=== PATIENT | male | born 1955 | race Caucasian/White ===

== ENCOUNTER 2016-12-21 19:11 | Emergency (ER) | payer OTHER ==
[~2016-12-21] VITALS: Ht 180.3 cm; Wt 81.0 kg
[2016-12-21 19:29] VITALS: BP 139/78; PULSE 82; RESP 16; O2SAT 98
[2016-12-21 20:06] LABS: BASOPHILS % (AUTO) 0.3 % (0-3); EOSINOPHILS % (AUTO) 1.3 % (0-5); MONOCYTES % (AUTO) 0.8 % (4-12); Mean Corpuscular Volume 91.1 fL (81-100); NEUTROPHILS % (AUTO) 84.7 % (40-74); Platelet Count 131 bil/L (150-400)
[2016-12-21 21:15] VITALS: BP 130/65; PULSE 75; RESP 16; O2SAT 97
--- NOTE | 2016-12-21 21:47 | ED.REPORT ---
HPI-General Illness Date of Service Dec 21, 2016 ED Provider: Wallace Gray MD History of Present Illness: OCC A 61 year old male with no pertinent medical history presents to the ED complaining of uncontrollable shaking. 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 He laid down at 19:00 and suddenly began shaking. He describes the shaking as a type of shiver, unlike a seizure, accompanied by abdominal pain and headache. He denies diaphoresis, chills, dysuria, rash or abnormal cough. The pt was hit in the head during a soccer game four days ago and has been experiencing a headache since that point. The pt is also concerned because he has been working recently in an environment with mold. He denies recent surgery. Nursing Notes Stated Complaint: UNCONTROLLABLE SHAKING Chief Complaint: General Complaint Nursing Notes Reviewed: Yes ([facility], [employer] not reconciled) Allergies: Coded Allergies: No Known Allergies (Unverified , 12/21/16) General Time Seen by MD: 21:45 Chief Complaint Other (Shaking) Hx Obtained From: Patient, Spouse Arrived By: Walk-in Sudden in Onset?: Yes Onset Occurred: 1 - 4 hours ago Symptom Duration: Since onset Recent Healthcare: No recent doctor visit, No recent hospitalization Similar Sx Previous: No Past Medical History Past Medical History none reported Past Surgical History none reported Smoking History Former Smoker Social History Alcohol Use: "Social" Other Social History: Good social support, Ambulatory Status Independent Review of Systems Full Review of Systems Constitutional: Denies: Chills Respiratory: Denies: Non-productive cough, Shortness of breath GI: Reports: Abdominal pain, Denies: Vomiting Male: Denies Dysuria Musculoskeletal: Denies: Back pain, Neck pain Skin: Denies Diaphoresis, Denies Rash Neurologic: Reports: Headache, Shaking (shivering) Complete sys rev & neg: except as marked. Physical Exam Vital Signs Vital Signs Date Time Temp Pulse Resp B/P Pulse Ox O2 Delivery O2 Flow Rate FiO2 12/22/16 01:29 36.9 72 16 132/68 98 Room Air 12/21/16 21:15 75 16 130/65 97 Room Air 12/21/16 19:29 37.5 82 16 139/78 98 Room Air Initial VS: Reviewed, Vital signs normal General/Constitutional: Awake, Alert Head / Eyes: Atraumatic, Normocephalic, PERRL, EOMI ENT: Atraumatic, Airway patent, Mucous membranes moist Neck: Atraumatic, Supple, Full range of motion Respiratory / Chest: Atraumatic, Breath sounds NL, Breath sounds = bilat, No respiratory distress Cardiovascular: Heart rate NL, Regular rhythm, Heart sounds NL Abdomen: Atraumatic, Soft, Non-tender Back: Atraumatic, Full range of motion Upper Extremities Upper Extremity / MS: Atraumatic, Full range of motion Lower Extremity / Pelvis / MS: Atraumatic, Full range of motion Skin: Atraumatic, Color NL, No rash, Warm, Dry Neurologic: Oriented X3, Speech NL, No motor deficits, No sensory deficits Psychiatric: Affect NL, Mood NL Interpretation & Diagnostics Lab Results Interpretation Result Diagram: 12/21/16 1950 12/21/16 1950 Test 12/21/16 19:50 12/21/16 22:50 White Blood Count 7.8th/mm3 (3.8-10.1) Red Blood Count 4.81mil/mm3 (4.40-5.80) Hemoglobin 14.9g/dL (13.8-17.2) Hematocrit 43.8% (41.0-50.0) Mean Corpuscular Volume 91.1fL (81-100) Mean Corpuscular Hemoglobin 31.0pg (27.0-35.0) Mean Corpuscular Hemoglobin Concent 34.0% (32.0-37.0) Red Cell Distribution Width 12.7% (12.3-15.4) Platelet Count 131bil/L (150-400) Neutrophils (%) (Auto) 84.7% (40-74) Lymphocytes (%) (Auto) 12.8% (14-46) Monocytes (%) (Auto) 0.8% (4-12) Eosinophils (%) (Auto) 1.3% (0-5) Basophils (%) (Auto) 0.3% (0-3) Sodium Level 137mEq/L (134-144) Potassium Level 4.0mEq/L (3.5-5.2) Chloride Level 102mEq/L (97-108) Carbon Dioxide Level 24mmol/L (18-29) Blood Urea Nitrogen 22mg/dL (8-27) Creatinine 0.95mg/dL (0.76-1.27) Estimat Glomerular Filtration Rate 85mL/min (>59) Glucose Level 95mg/dL (60-99) Calcium Level 9.0mg/dL (8.5-10.1) Hold [place] Tube Received (Received) Urine Color Yellow (YELLOW) Urine Appearance Clear (CLEAR,HAZY) Urine pH 5.5 (5.0-8.0) Urine Specific [place] 1.026 (1.003-1.035) Urine Protein Negativemg/dL (NEG,TRACE) Urine Glucose (UA) Negativemg/dL (NEGATIVE) Urine Ketones 15mg/dL (NEGATIVE) Urine Occult Blood Negative (NEGATIVE) Urine Nitrite Negative (NEGATIVE) Urine Bilirubin Negative (NEGATIVE) Urine Urobilinogen Normalmg/dL (NORMAL) Urine Leukocyte Esterase Negative (NEGATIVE) Urine RBC 0-2/hpf (0-2) Urine WBC 0-5/hpf (0-5) Urine Epithelial Cells Occasional/hpf (NONE-MOD) Urine Crystals Uric acid crystals (NONE Urine Bacteria Few/hpf (NONE-FEW) Urine Hyaline Casts None/lpf (NONE) Urine Granular Casts None seen (NONE SEEN) Urine Waxy Casts None seen (NONE SEEN) Urine Red Blood Cell Casts None seen (NONE SEEN) Urine White Blood Cell Casts None seen (NONE SEEN) Urine Mucus Present (None Seen) Urine Trichomonas None seen (NONE SEEN) Urine Yeast None (NONE SEEN) Urinalysis Comment Renal epi seen Urine Culture Reflexed Not indicated Lab Results Interpretation: CBC normal CMP normal blood cultures 2 pending ECG Interpretation ECG Interpretation: normal sinus rhythm with a rate of 72 RBBB no previous EKG available for comparison Time: 21:15 Interpreted by: ED physician CT Head Interpretation CONCLUSION: No acute intracranial hemorrhage or calvarial fracture. Interpretation / Wet Read by: Interpret - Radiologist Re-Eval/Medical Decision Med Decision/Clinical Course This is a 61-year-old male who presents complaining of a sudden onset of "terrible shaking" and feeling cold, and of both extremities, and some diffuse body aches. He also notes a mild headache, reports a fairly minimal-and at that started after hitting his head on Saturday during a soccer game. He just felt very poorly after the shaking spell, so came in. He is not certain if he may have spiked a fever. He denies cough, shortness of breath, abdominal pain, vomiting, diarrhea, dysuria or rash. No travel, or infectious symptoms. He still feels just achy all over. The patient's afebrile here, and generally well-appearing. He is alert and appropriate with no focal deficits. His abdomen soft nontender, lungs are clear. No focal skin infection is identified on physical exam or in history. Overall presentation is concerning for an episode of rigors with infection in the major concern. Additionally there is this history of recent head trauma and mild headache and its relation to today's presentation is a bit unclear, given his age and trauma, CT brain was obtained and was negative. At impression clinical signs suggest meningitis, the patient is not have any meningismus, no rashes or exanthems, I am not finding indication LP is indicated. Labwork was obtained and is normal, blood cultures 2 are pending. Discussed options, and given the concern for Rigors and the risk for bacteremia in this setting, an empiric dose of ceftriaxone was administered. I think the patient is safely discharged to home, patient agrees and will follow up with cultures. Routine precautions reviewed. This point a dangerous etiology for the rigors was not identified. He appears well, and is doing well in the department. Source of Hx: Old records Time of Eval: 00:28 Patient Status: Condition improved Re-Evaluation/Progress Note: Pt rechecked, who is resting comfortably. The diagnosis and plan for discharge are discussed. The pt understands and agrees with the plan. All questions are addressed at this time. Differential Diagnosis: Negative: Abdominal pain, Acute coronary syndrome, Allergies, Bronchitis, acute, Contusion, Malingering, Neutropenia, Pneumonia, Seizure disorder Counseled Regarding: Diagnosis, Lab results, Need for follow-up, When/why to return to ED Discharge & Departure Primary Impression: Rigors Disposition: Home Discharge Condition All VS Reviewed: Yes Condition: Stable Additional Instructions: 1. Your brain CT scan, initial blood work, and urine tests were normal. 2. We charlie "blood cultures" today which take several days for final results. This is because the most concerning cause of the shaking spell ("rigors") that you describe are from a developing infection. 3. We have not identified either a specific or dangerous infection thus far. 5. He received an injection of the antibiotic ceftriaxone tonight while we wait for the blood culture results. We will call you if the blood cultures are abnormal, and he may call us at any time at [phone] for results. 6. Rest. Continue to take ibuprofen as needed for soreness up to every 6 hours. Drink extra fluids. 7. If you develop new or worsening symptoms return to the emergency department. Referrals: Andrew Zavala MD (PCP) Scribe Attestation Portions of this note were transcribed by Ailyn Joseph. I, Dr. Gray personally performed the history, physical exam and medical decision-making; I reviewed and confirmed the accuracy of the information in the transcribed note. Signed by: Marlo Aguiar, 12/22/2016 and 0034. copies to: Andrew Zavala MD, Matthew F MD Dec 21, 2016 21:46 AILYN JOSEPH Dec 21, 2016 22:04
[2016-12-21 23:13] LABS: APPEARANCE,URINE CLEAR (CLEAR,HAZY); COLOR,URINE YELLOW (YELLOW); OCCULT BLOOD,URINE NEGATIVE (NEGATIVE); PH,URINE 5.5 (5.0-8.0); UROBILINOGEN,URINE NORMAL (NORMAL)
[2016-12-22] MEDS ORDERED: cefTRIAXone Inj 1,000 MG, Lidocaine PF 1% Inj 2.1 ML in Syringe 0 EACH IM ONE (00:25)
[2016-12-22] MEDS ORDERED: cefTRIAXone Inj 2,000 MG, Lidocaine PF 1% Inj 4.2 ML in Syringe 0 EACH IM ONE (00:30)
[2016-12-22 01:29] VITALS: BP 132/68; PULSE 72; RESP 16; O2SAT 98
--- NOTE | 2016-12-22 08:33 | DRSVH ---
PROCEDURE: CT BRAIN WITHOUT CONTRAST ([id number]) INDICATIONS: head trauma TECHNIQUE: Noncontrast 4.5 mm thick angled axial sections acquired from the foramen magnum to the vertex, with c oronal reformats. COMPARISON: None. FINDINGS: Image quality: Excellent. CSF spaces: Basal cisterns are patent. No extra-axial fluid collections. Ventricles are normal in size and shape. Brain: No midline shift. No intracranial masses or hemorrhage. Velasquez-white matter interface is norm al. Skull and face: Calvarium and visualized facial bones are intact, without suspicious lesions. Sinuses: Visualized sinuses and mastoids are clear. IMPRESSION: No acute intracranial abnormality. No skull fracture. No significant discrepancy with the [facility] department supervisor radiology preliminary report. Dictated by: Ria Rouse M.D. on 12/22/2016 at 8:31 Approved by: Ria Rouse M.D. on 12/22/2016 at 8:31
== END 2016-12-22 01:30 | disposition home or self-care (01) ==
LOC: SED 19:11
DX: R68.89 Other general symptoms and signs (principal); Z87.891 Personal history of nicotine dependence
CPT/HCPCS: 36415; 70450; 80048; 81000; 85025; 87040; 93005; 96372; 99285; J0696